=== PATIENT | female | born 1995 ===

== ENCOUNTER → 2017-05-14 | Outpatient (CLI) | payer BC ==
[2017-05-14 11:44] LABS: Cholesterol 193 mg/dL (< 200); HDL Cholesterol 52 mg/dL (40-59); LDL Cholesterol 131 mg/dL (< 100); Triglycerides 177 mg/dL (< 150)
[2017-05-14 11:53] LABS: Follicle Stimulating Hormone 4.67 IU/L (SEE BELOW); Leuteinizing Hormone 14.7 IU/L
[2017-05-14 12:04] LABS: Beta HCG, Quantitative < 1 mlU/mL (1-3); Thyroid Stimulating Hormone 3.06 uIU/mL (0.358-3.74)
== END | disposition home or self-care (01) ==
LOC: LAB 10:42
PROVIDERS: ATTEND Specialist
DX: E28.2 Polycystic ovarian syndrome (principal)
CPT/HCPCS: 36415; 80061; 82626; 83001; 83002; 83525; 84403; 84443; 84702